=== PATIENT | female | born 1965 | race Caucasian/White ===

== ENCOUNTER 2019-06-15 16:30 | Inpatient (IN) ==
[2019-06-15] MEDS ORDERED: IOPAMIDOL 100 ML BOTTLE IV ONE (16:31)
[2019-06-15 17:44] LABS: Basophils # (Auto) 0.08 K/mcL (0.00-0.30); Basophils % (Auto) 0.8 % (0.0-2.0); Eosinophils # (Auto) 0.43 K/mcL (0.00-0.70); Eosinophils % (Auto) 4.2 % (0.0-7.0); Granulocytes % (Auto) 55.7 % (38.0-78.0); Hematocrit 42.9 % (34.1-44.9); Hemoglobin 13.2 g/dL (11.2-15.7); Lymphocytes # (Auto) 3.13 K/mcL (1.50-4.80); Lymphocytes % (Auto) 30.4 % (15.5-49.0); Mean Cell Volume 89.9 fL (80.0-100.0); Mean Corpuscular HGB Conc 30.8 g/dL (31.0-36.0); Monocytes # (Auto) 0.92 K/mcL (0.10-0.90); Monocytes % (Auto) 8.9 % (1.0-12.0); Platelet Count 309 K/mcL (140-440); RBC 4.77 M/mcL (3.59-5.38); Red Cell Distribution Width 16.6 % (11.5-14.5); WBC 10.3 K/mcL (4.50-11.00)
[2019-06-15 17:57] LABS: Prothrombin Time 13.9 sec (11.9-14.5)
[2019-06-15 18:04] LABS: proBNP 125.9 pg/ml (0-125)
[2019-06-15 18:05] LABS: ALT/SGPT 44 U/l (0-40); AST/SGOT 58 U/l (0-37); Albumin 3.8 gm/dL (3.2-5.2); Albumin/Globulin Ratio 1.2 (1.0-2.3); Alkaline Phosphatase 182 U/L (39-117); Bilirubin,Total 0.3 mg/dL (0.0-1.0); Blood Urea Nitrogen 26 mg/dl (6-20); Calcium 8.6 mg/dl (8.6-10.4); Carbon Dioxide 29 mmol/L (22-30); Chloride 95 mmol/L (96-108); Globulin 3.2 gm/dL (2.2-3.7); Glomerular Filtration Rate 72; Glucose 95 mg/dL (70-105)
[2019-06-15] MEDS ORDERED: HYDROcodone/APAP (PP) 5/325MG TABLET (#4) PO ONE (18:14)
[2019-06-15] MEDS ORDERED: HYDROcodone/APAP 5/325MG TABLET PO ONE ×2 (18:27→22:29)
--- NOTE | 2019-06-15 20:08 | Emergency Department Note ---
General Adult HPI - General Chief complaint: Shortness of Breath/Dyspnea Stated complaint: shortness of breath Time Seen by Provider: 06/15/19 16:52 Source: patient Mode of arrival: ambulatory Limitations: no limitations - History of Present Illness HPI Narrative: 53-year old patient presenting with chief complaint of dyspnea. Patient's dyspnea arose over the course of weeks. Patient with associated symptoms of cough, gradual progression, orthopnea. She has had recent echocardiogram. Past medical history is significant for asthma/cardiovascular disease/CHF/obesity, deconditioning. This patient's dyspnea was exacerbated by exertion within 50-100 feet of walking or several minutes of exercise. Also was associated with a nocturnal component. Symptoms are intermittent. Additional associated symptoms such as cough, sputum production, nasal congestion, chest pain, peripheral edema, joint swelling, muscle weakness were also inquired and were negative. Patient primarily with dyspnea sensation of sensation of suffocation. - Related Data Previous Rx's Medication Instructions Recorded fluticasone propionate 50 2 spray INTRANASAL QDAY #15.8 ml 02/05/19 mcg/actuation nasal spray,suspension citalopram 20 mg tablet 20 mg PO QDAY #90 tab 02/11/19 zolpidem 10 mg tablet 10 mg PO HS PRN #30 tab 04/08/19 clonazepam 1 mg tablet See Rx Instructions PO BID PRN #30 05/29/19 tab hydrocodone 7.5 mg-acetaminophen 1 tab PO Q4H PRN #90 tab 05/29/19 325 mg tablet amlodipine 10 mg tablet 10 mg PO QDAY #90 tab 06/07/19 albuterol sulfate 90 mcg/actuation 2 puff INHALATION Q6H PRN #8.5 g 06/11/19 aerosol inhaler furosemide 20 mg tablet 20 mg PO QAM #30 tab 06/11/19 potassium chloride 10 mEq 10 meq PO QDAY #30 tab 06/11/19 tablet,extended release Levofloxacin [Levaquin] 750 mg PO DAILY #7 tab 06/15/19 Allergies Allergy/AdvReac Type Severity Reaction Status Date / Time Varenicline [From Chantix] Allergy Unknown Unknown Verified 06/15/19 16:38 Review of Systems All systems ED: reviewed and negative except as stated. Past Medical History - Past Medical History PMFSH Narrative: All Active Problems (Last Reviewed 04/02/19 @ 13:46 by Woody Fierro PA-C) Community acquired pneumonia (Acute) Maxillary sinusitis (Acute) Upper respiratory infection (Acute) Macromastia (Chronic) Degeneration of intervertebral disc of lumbar region (Chronic) Diverticulosis of colon (Chronic) Osteoarthritis (Chronic) Insomnia (Chronic) - Social History smoking status: Current every day smoker Physical Exam Vital signs and evaluated for evidence of hypoxia or hemodynamic compromise specifically tachycardia/hypotension General: Alert, interactive, appropriate Head: Atraumatic, normocephalic Eyes: Extraocular movements intact, sclera anicteric, no conjunctival injection Ears: Pinnae normal, no discharge Mouth: Oral mucosa moist, no acute swelling or evidence of infection Nares: No nasal discharge, patent bilaterally Neck: Trachea midline, full range of motion Chest: Symmetrical chest wall rise, breathing normally; nonlabored respirations Cardiovascular: Patient with excellent perfusion to the extremities; without tachycardia Extremities: Full range of motion joints, no obvious deformities Neuro: Alert, oriented x3, cranial nerves II through XII grossly intact, patient without lateralizing findings such as weakness, or abnormal reflexes Psychiatric: Normal affect, normal mood Limitations: no limitations Course Vital Signs Temperature 98 F 06/15/19 16:30 Pulse Rate 87 06/15/19 16:30 Respiratory Rate 20 06/15/19 16:30 Blood Pressure 139/80 06/15/19 16:30 Pulse Oximetry (%) 66 L 06/15/19 16:30 Temperature 98 F 06/15/19 16:30 Pulse Rate 66 06/15/19 19:31 Respiratory Rate 12 06/15/19 19:31 Blood Pressure 133/75 06/15/19 19:31 Pulse Oximetry (%) 95 06/15/19 19:31 Medical Decision Making - [facility] Narrative Medical decision making narrative: Acute dyspnea differential diagnosis considered in this case included MT, heart failure, cardiac tamponade, bronchospasm, pulmonary embolism, pneumothorax, pneumonia or infection, and upper airway obstruction. After review of chart and patient history/physical exam/labs as well as imaging the differential diagnosis addressed was acute hypoxic respiratory failure, COPD exacerbation, pneumonia, sepsis, pulmonary edema, pneumothorax, metabolic acidosis, acute respiratory distress syndrome, panic attack, airflow obstruction, restrictive lung disease, aspiration, congestive heart failure, hypercapnia, influenza, bronchitis, upper respiratory infection, pulmonary embolism, cardiac tamponade, valvular obstruction, MT/ACS, and arrhythmia in my medical opinion this patient has dyspnea that reasonably does not require admission to the hospital. D-dimer was positive and CT pulmonary angiogram demonstrated there was some interstitial infiltrates. Patient also does have dilatation of the left ventricle however noting that BN P is 125.9 and high normal for us is 125 I doubt she has acute congestive heart failure. She does not have pulmonary embolism. In my medical opinion at this time patient has pneumonia and is not hypoxic tachycardic hypotensive or other findings to suggest she needs to be admitted for this and we will treat her as an outpatient pneumonia. - Lab Data Result diagrams: 06/15/19 17:05 06/15/19 17:05 Lab Results 06/15/19 06/15/19 06/15/19 Range/Units 17: 17:05 17:05 WBC (4.50-11.00) K/mcL RBC (3.59-5.38) M/mcL Hgb (11.2-15.7) g/dL Hct (34.1-44.9) % MCV (80.0-100.0) fL MCH (26.0-34.0) pg MCHC (31.0-36.0) g/dL RDW (11.5-14.5) % Plt Count (140-440) K/mcL MPV (7.4-10.4) fL Gran % (38.0-78.0) % Lymph % (Auto) (15.5-49.0) % Patrick % (Auto) (1.0-12.0) % Eos % (Auto) (0.0-7.0) % Baso % (Auto) (0.0-2.0) % Gran # (1.80-8.00) K/mcL Lymph # (Auto) (1.50-4.80) K/mcL Patrick # (Auto) (0.10-0.90) K/mcL Eos # (Auto) (0.00-0.70) K/mcL Baso # (Auto) (0.00-0.30) K/mcL PT 13.9 (11.9-14.5) sec INR 1.0 (0.9-1.1) D-Dimer 2.07 H (0.00-0.40) ug/ml Sodium 137 (133-145) mmol/L Potassium 4.3 (3.3-5.1) mmol/L Chloride 95 L (96-108) mmol/L Carbon Dioxide 29 (22-30) mmol/L Anion Gap 13.0 (8-16) BUN 26 H (6-20) mg/dl Creatinine 0.9 (0.6-1.1) mg/dl GFR Calculation 72 Glucose 95 (70-105) mg/dL Calcium 8.6 (8.6-10.4) mg/dl Total Bilirubin 0.3 (0.0-1.0) mg/dL AST 58 H (0-37) U/l ALT 44 H (0-40) U/l Alkaline Phosphatase 182 H (39-117) U/L Troponin T < 0.01 (0-0.03) ng/ml NT-Pro-B Natriuret Pep 125.9 H (0-125) pg/ml Total Protein 7.0 (5.9-8.4) gm/dL Albumin 3.8 (3.2-5.2) gm/dL Globulin 3.2 (2.2-3.7) gm/dL Albumin/Globulin Ratio 1.2 (1.0-2.3) 06/15/19 Range/Units 17:05 WBC 10.3 (4.50-11.00) K/mcL RBC 4.77 (3.59-5.38) M/mcL Hgb 13.2 (11.2-15.7) g/dL Hct 42.9 (34.1-44.9) % MCV 89.9 (80.0-100.0) fL MCH 27.7 (26.0-34.0) pg MCHC 30.8 L (31.0-36.0) g/dL RDW 16.6 H (11.5-14.5) % Plt Count 309 (140-440) K/mcL MPV 9.0 (7.4-10.4) fL Gran % 55.7 (38.0-78.0) % Lymph % (Auto) 30.4 (15.5-49.0) % Patrick % (Auto) 8.9 (1.0-12.0) % Eos % (Auto) 4.2 (0.0-7.0) % Baso % (Auto) 0.8 (0.0-2.0) % Gran # 5.74 (1.80-8.00) K/mcL Lymph # (Auto) 3.13 (1.50-4.80) K/mcL Patrick # (Auto) 0.92 H (0.10-0.90) K/mcL Eos # (Auto) 0.43 (0.00-0.70) K/mcL Baso # (Auto) 0.08 (0.00-0.30) K/mcL PT (11.9-14.5) sec INR (0.9-1.1) D-Dimer (0.00-0.40) ug/ml Sodium (133-145) mmol/L Potassium (3.3-5.1) mmol/L Chloride (96-108) mmol/L Carbon Dioxide (22-30) mmol/L Anion Gap (8-16) BUN (6-20) mg/dl Creatinine (0.6-1.1) mg/dl GFR Calculation Glucose (70-105) mg/dL Calcium (8.6-10.4) mg/dl Total Bilirubin (0.0-1.0) mg/dL AST (0-37) U/l ALT (0-40) U/l Alkaline Phosphatase (39-117) U/L Troponin T (0-0.03) ng/ml NT-Pro-B Natriuret Pep (0-125) pg/ml Total Protein (5.9-8.4) gm/dL Albumin (3.2-5.2) gm/dL Globulin (2.2-3.7) gm/dL Albumin/Globulin Ratio (1.0-2.3) Disposition Pt seen by VEHIC[employer] MANAGER/PA only: No Clinical Impression: Community acquired pneumonia Qualifiers: Laterality: unspecified laterality Qualified Code(s): J18.9 - Pneumonia, unspecified organism Disposition: Home, Self-Care Condition: Fair Instructions: Pneumonia (ED) Additional Instructions: Thank you, Mel Dangelo , for coming to [facility] for your emergency medicine needs today. As your doctor today, Dr. Faria it is my greatest wish that we did address your concerns to the best of our ability in the emergency department. Shortness of breath is very concerning symptom. It is not infrequent that we are unable to arrive to a specific diagnostic conclusion in every case of shortness of breath. However, we are able to evaluate you for the most dangerous and emergent causes for your symptoms. Things we checked for and you do not have include a heart attack, collapsed lung, pneumonia, blood clots in your lungs or a direct blockage of your airway. Oftentimes patients must return to the emergency department for further evaluations if there are symptom changes/persistence, sometimes things do not show up in initial labs/x rays and then later do show up. Simply put, if you are worried I am worried. You must follow-up with your primary care physician within 1 week of this emergency room visit. Prescriptions: Levofloxacin [Levaquin] 750 mg PO DAILY #7 tab Transmission Status: Pending to [facility] Referrals: Woody Fierro PA-C [Primary Care Provider] -
[2019-06-15] MEDS ORDERED: LEVOFLOXACIN 750 MG TABLET PO ONE (20:22)
[2019-06-15] MEDS ORDERED: LEVOFLOXACIN 750 MG/150 ML BAG IV ONE (20:30)
[2019-06-15] MEDS ORDERED: PROCHLORPERAZINE 10 MG/2 ML VIAL IV PRN (22:59)
[2019-06-15] MEDS ORDERED: ALBUTEROL SULFATE 2.5 MG/3 ML NEBULIZER NEB PRN (22:59)
[2019-06-15] MEDS ORDERED: DEXTROSE 31 GM ORAL.SUSP PO PRN (22:59)
[2019-06-15] MEDS ORDERED: DEXTROSE 50% 50 ML VIAL IV PRN (22:59)
[2019-06-15] MEDS ORDERED: LEVOFLOXACIN 750 MG/150 ML BAG IV SCH (23:00)
[2019-06-15] MEDS ORDERED: ALBUTEROL SULFATE 200 PUFF INHALER INH PRN (23:10)
[2019-06-15] MEDS ORDERED: ZOLPIDEM TARTRATE 10 MG PO PRN (23:15)
[2019-06-15] MEDS ORDERED: clonazePAM 1 MG TABLET PO PRN (23:15)
[2019-06-15] MEDS ORDERED: HYDROCODONE/APAP 7.5/325MG TABLET PO PRN (23:15)
--- NOTE | 2019-06-16 00:15 | Internal Med History&Physical ---
Medical - H&P: [facility] Patient information: Note initiated : 06/16/19 at 12:04 am Service Date, if different from initiated Date: [] Patient: Mel Dangelo 53 y/o F admitted on for shortness of breath. Chief Complaint: [SOB x 1 month] History of present illness: Patient is a 52-year-old female with a history of diabetes type 2 and current smoker who presented to the ER due to shortness of breath for about a month. As per patient, she has been having shortness breath for about a month associated with mild cough with a small amount of sputum, mild headache and nasal congestion. She started to notice some swelling of both legs 2 weeks ago. She also reports that yesterday she had one episode of right-sided chest pain which lasted for a short time. Otherwise she is fine. Denies dizziness, confusion, diaphoresis, fever, chills, abdominal pain, nausea, vomiting, diarrhea, sore throat, dysuria. In the ER, d-dimer was elevated. CT angio chest - negative for PE but possible pnuemonia. She also had 1 episode of desaturation, 78%. 1 dose of Levaquin was given. When I saw this patient, other than symptoms mentioned above, she was fine. Denied recent travel or sick contact. Review of systems: Positive for these symptoms mentioned in HPI. All other systems were reviewed and are negative. Medical - H&P: PMH Family history: reviewed and not pertinent Smoking status: Current every day smoker Drug use: none Alcohol use: none Medical - H&P: Meds Home Medications Medication Instructions Recorded Confirmed Type fluticasone propionate 50 2 spray INTRANASAL QDAY #15.8 ml 02/05/19 06/15/19 Rx mcg/actuation nasal spray,suspension zolpidem 10 mg tablet 10 mg PO HS PRN #30 tab 04/08/19 06/15/19 Rx hydrocodone 7.5 mg-acetaminophen 1 tab PO Q4H PRN #90 tab 05/29/19 06/15/19 Rx 325 mg tablet amlodipine 10 mg tablet 10 mg PO QDAY #90 tab 06/07/19 06/15/19 Rx albuterol sulfate 90 mcg/actuation 2 puff INHALATION Q6H PRN #8.5 g 06/11/19 06/15/19 Rx aerosol inhaler furosemide 20 mg tablet 20 mg PO QAM #30 tab 06/11/19 06/15/19 Rx potassium chloride 10 mEq 10 meq PO QDAY #30 tab 06/11/19 06/15/19 Rx tablet,extended release Levofloxacin [Levaquin] 750 mg PO DAILY #7 tab 06/15/19 Rx Vitamin C 1,000 mg DAILY 06/15/19 06/15/19 History Vitamin D3 1 tab PO DAILY 06/15/19 06/15/19 History clonazePAM [KlonoPIN] 1 mg PO BID PRN 06/15/19 06/15/19 History Allergies Allergy/AdvReac Type Severity Reaction Status Date / Time Varenicline [From Chantix] Allergy Unknown Unknown Verified 06/15/19 16:38 Medical - H&P: Exam - Constitutional Vitals: Temp Pulse Resp BP Pulse Ox 98 F 84 17 140/83 92 06/15/19 16:30 06/15/19 23:46 06/15/19 23:46 06/15/19 23:46 06/15/19 23:46 - Other Additional findings: General - No acute distress Eyes - PERRLA, EOM intact ENT no rhinorrhea, no noticeable or palpable swelling, no redness or rash around throat or on face Neck supple, no JVD, no thyromegaly Respiratory: occasional rhonchi, no use of accessary muscles. Cardiovascular - RRR no m/r/g, GI - Normal bowel sounds, no distended, soft. Extremeties - Pitting edema+ - ++, no cyanosis or clubbing Hemo/lymphatic/immune no lymphadenopathy Neurological Alert and oriented x 3, no focal neurological deficits. Psychiatry flat affect Medical - H&P: Reslt - Labs CBC & Chem 7: 06/15/19 17:05 06/15/19 17:05 Labs: Short CBC 06/15/19 Range/Units 17:05 WBC 10.3 (4.50-11.00) K/mcL Hgb 13.2 (11.2-15.7) g/dL Hct 42.9 (34.1-44.9) % Plt Count 309 (140-440) K/mcL BMP 06/15/19 17:05 Sodium 137 Potassium 4.3 Chloride 95 L Carbon Dioxide 29 BUN 26 H Creatinine 0.9 Glucose 95 Calcium 8.6 Cardiac Enzymes 06/15/19 Range/Units 17:05 Troponin T < 0.01 (0-0.03) ng/ml Liver Function 06/15/19 Range/Units 17:05 Total Bilirubin 0.3 (0.0-1.0) mg/dL AST 58 H (0-37) U/l ALT 44 H (0-40) U/l Alkaline Phosphatase 182 H (39-117) U/L Albumin 3.8 (3.2-5.2) gm/dL Medical - H&P: A/P - Narrative A/P Narrative: Assessment: 1. Acute hypoxic respiratory failure 2. Possible pneumonia J18.9 3. Abnormal liver enzymes 4. Elevation of D-dimer 5. DM type 2 6. Current smoker 7. SOB, covid 19 infection? 8. HTN 9. Chest pain Plan: 1. One episode of desaturation, 78% in the ER. Pulse ox. oxygen. Home meds including several narcotics and BZ, which should be decreased to eventually discontinue 2. CTA chest result pending. But ER Dr. Faria verbally reported possible pneumonia Blood and sputum culture. One dose Levaquin was started in the ER. Continue Levaquin 3. Denies regular use of alcohol. Repeat liver enzymes in morning. 4. CTA chest negative for PE. US Doppler LEs to r/o DVT was ordered 5. Pt denies having DM. Hba1c ordered. Diabetic diet. Insulin ss. 6. Smoking cessation counseled. Nicotine patch. 7. Special droplet and contact precaution for covid 19 8. Continue home amlodipine 10mg daily. 9. EKG no ST elevation, but may show Q waves and intraventricular conduction delay. EKG on 03/2019 showed incomplete LBBB. Troponin negative in the ER. Repeat trop Q6hrs. Continue aspirin and added Lipitor. 10. DVT prophylaxis: Lovenox 11. Code status: full
[2019-06-16] MEDS ORDERED: ZOLPIDEM 5 MG TABLET PO PRN (00:54)
[2019-06-16] MEDS ORDERED: PROCHLORPERAZINE 10 MG/2 ML VIAL IV PRN (00:54)
[2019-06-16] MEDS ORDERED: DEXTROSE 31 GM ORAL.SUSP PO PRN (00:54)
[2019-06-16] MEDS ORDERED: ALBUTEROL SULFATE 200 PUFF INHALER INH PRN (00:54)
[2019-06-16] MEDS ORDERED: DEXTROSE 50% 50 ML VIAL IV PRN (00:54)
[2019-06-16] MEDS ORDERED: clonazePAM 1 MG TABLET ONE (01:03)
[2019-06-16] MEDS ORDERED: ZOLPIDEM 5 MG TABLET ONE (01:04)
[2019-06-16] MEDS: 0.9 % SODIUM CHLORIDE 10 ML SYRINGE IV SCH ×3 (05:24→20:40)
[2019-06-16] MEDS ORDERED: 0.9 % SODIUM CHLORIDE 10 ML SYRINGE IV SCH (06:00)
[2019-06-16 06:18] LABS: Basophils # (Auto) 0.05 K/mcL (0.00-0.30); Basophils % (Auto) 0.8 % (0.0-2.0); Eosinophils # (Auto) 0.25 K/mcL (0.00-0.70); Granulocytes % (Auto) 56.1 % (38.0-78.0); Hematocrit 38.9 % (34.1-44.9); Hemoglobin 11.6 g/dL (11.2-15.7); Lymphocytes # (Auto) 1.87 K/mcL (1.50-4.80); Lymphocytes % (Auto) 29.7 % (15.5-49.0); Mean Cell Volume 90.7 fL (80.0-100.0); Mean Corpuscular HGB Conc 29.8 g/dL (31.0-36.0); Mean Platelet Volume 9.4 fL (7.4-10.4); Monocytes # (Auto) 0.59 K/mcL (0.10-0.90); Monocytes % (Auto) 9.4 % (1.0-12.0); Platelet Count 261 K/mcL (140-440); RBC 4.29 M/mcL (3.59-5.38); Red Cell Distribution Width 16.9 % (11.5-14.5); WBC 6.3 K/mcL (4.50-11.00)
[2019-06-16 06:36] LABS: ALT/SGPT 134 U/l (0-40); AST/SGOT 184 U/l (0-37); Albumin 3.3 gm/dL (3.2-5.2); Albumin/Globulin Ratio 1.2 (1.0-2.3); Alkaline Phosphatase 153 U/L (39-117); Bilirubin,Total 0.3 mg/dL (0.0-1.0); Blood Urea Nitrogen 22 mg/dl (6-20); C-Reactive Protein 1.1 mg/dl (0.0-0.8); Calcium 8.7 mg/dl (8.6-10.4); Carbon Dioxide 33 mmol/L (22-30); Globulin 2.7 gm/dL (2.2-3.7); Glomerular Filtration Rate 72; Glucose 94 mg/dL (70-105); Thyroid Stimulating Hormone 1.28 uIU/ml (0.27-5.01)
[2019-06-16 06:47] LABS: Chloride 99 mmol/L (96-108)
[2019-06-16 06:57] LABS: Estimated Average Glucose(eAG) 103 mg/dL; Hemoglobin A1C 5.2 % HGB (4.0-6.0)
[2019-06-16] MEDS: INSULIN LISPRO 1 UNIT/0.01 ML UNIT SQ SCH ×4 (07:17→20:39)
[2019-06-16] MEDS ORDERED: INSULIN LISPRO 1 UNIT/0.01 ML UNIT SQ SCH (07:30)
[2019-06-16] MEDS: HYDROCODONE/APAP 7.5/325MG TABLET PO PRN ×3 (08:06→16:32)
[2019-06-16] MEDS ORDERED: HYDROCODONE/APAP 7.5/325MG TABLET PO ONE (08:09)
--- NOTE | 2019-06-16 08:41 | XRay Report ---
HISTORY: Chest pain and dyspnea FINDINGS: Heart is mildly enlarged and has increased in size since 03/25/19. A vessels are mildly engorged. There is an opacification at the right lung base which may be a combination of pleural fluid and consolidated lung parenchyma. There is no infiltrate in the left side. IMPRESSION: Cardiomegaly and borderline pulmonary vascular congestion Atelectasis or pneumonia in the right lower lobe Interpreted and Authenticated by: Augustin Lou 06/16/19
--- NOTE | 2019-06-16 08:48 | Cat Scan Report ---
History: Short of breath, elevated d-dimer level TECHNIQUE: Following injection of intravenous nonionic contrast, pulmonary arterial phase images were acquired from the thoracic inlet to the adrenals. Sagittal, coronal and axial MIPS images were created. The radiation exposure was limited using dose reduction technology. FINDINGS: The pulmonary arteries are normal with no intraluminal filling defects. The aorta is normal in caliber and there is no plaque formation. The heart is borderline enlarged and there is a very small pericardial effusion. Patient is a small layering right-sided pleural effusion. Associated with this is atelectasis of the posterior lateral basal segments of the right lower lobe. There is a patchy distribution of small areas of consolidated lung parenchyma in the right upper lobe and small zones of groundglass opacity in the right middle and right lower lobe. Bands of discoid atelectasis are present in the right middle lobe, right lower lobe and inferior segment lingula and lateral basal segment left lower lobe. Bronchial wall thickening is present in both lower lobes involving the distal third order bronchi. This is causing significant narrowing of the lumen of some of the small peripheral airways in the posterior basal segments. There are indeterminate size lymph nodes in the mediastinum and right hilum. Largest lymph node is in the pretracheal retrocaval space and measures 1.3 cm. IMPRESSION: No evidence of pulmonary emboli Patchy small infiltrates in the right lung could be due to an infectious or noninfectious inflammatory process Bronchitis with peripheral atelectasis in the right lower lobe Small pericardial and small right-sided pleural effusion Interpreted and Authenticated by: Augustin Lou 06/16/19
--- NOTE | 2019-06-16 08:55 | Ultrasound Report ---
History: Shortness of breath FINDINGS: There is normal augmentation and compressibility of the deep veins and saphenous vein in both legs from the groin through the calf. Doppler shows normal waveform patterns. IMPRESSION: Normal exam, without evidence of deep venous thrombosis in either leg Interpreted and Authenticated by: Augustin Lou 06/16/19
[2019-06-16] MEDS ORDERED: ASPIRIN 81 MG TAB.CHEW CHEWED SCH (09:00)
[2019-06-16] MEDS ORDERED: [UNRECOGNIZED DRUG - REMARK] INTRANASAL SCH (09:00)
[2019-06-16] MEDS ORDERED: ATORVASTATIN 40 MG TABLET PO SCH (09:00)
[2019-06-16] MEDS ORDERED: DOCUSATE SODIUM 100 MG CAPSULE PO SCH (09:00)
[2019-06-16] MEDS ORDERED: ENOXAPARIN 40 MG/0.4 ML SYRINGE SQ SCH (09:00)
[2019-06-16] MEDS ORDERED: FUROSEMIDE 20 MG TABLET PO SCH (09:00)
[2019-06-16] MEDS ORDERED: amLODIPine 10 MG TABLET PO SCH (09:00)
[2019-06-16] MEDS: FLUTICASONE PROPIONATE SPRAY.NAS NS SCH (09:09)
[2019-06-16] MEDS: MUPIROCIN OINT 2% 22GM NARES SCH ×2 (09:33→20:39)
[2019-06-16] MEDS: NICOTINE 14 MG PATCH TOPICAL SCH (09:33)
[2019-06-16] MEDS: LEVOFLOXACIN 750 MG/150 ML BAG IV SCH (09:34)
[2019-06-16] MEDS: ENOXAPARIN 40 MG/0.4 ML SYRINGE SQ SCH (09:34)
[2019-06-16] MEDS: DOCUSATE SODIUM 100 MG CAPSULE PO SCH ×3 (09:35→20:39)
[2019-06-16] MEDS: ATORVASTATIN 40 MG TABLET PO SCH (09:35)
[2019-06-16] MEDS: ASPIRIN 81 MG TAB.CHEW CHEWED SCH (09:35)
[2019-06-16] MEDS: amLODIPine 10 MG TABLET PO SCH (09:35)
[2019-06-16] MEDS: POTASSIUM CHLORIDE 10 MEQ TABLET PO SCH (09:35)
[2019-06-16] MEDS: VITAMIN D3 5,000 UNIT CAPSULE PO SCH (09:35)
[2019-06-16] MEDS ORDERED: NICOTINE 14 MG PATCH TOPICAL SCH (10:00)
[2019-06-16] MEDS: FUROSEMIDE 20 MG/2 ML VIAL IV SCH ×2 (11:33→15:43)
[2019-06-16] MEDS: clonazePAM 1 MG TABLET PO PRN ×2 (11:58→20:40)
[2019-06-17] MEDS: HYDROCODONE/APAP 7.5/325MG TABLET PO PRN ×2 (04:19→09:20)
[2019-06-17] MEDS: 0.9 % SODIUM CHLORIDE 10 ML SYRINGE IV SCH (05:54)
[2019-06-17 06:21] LABS: Basophils # (Auto) 0.05 K/mcL (0.00-0.30); Basophils % (Auto) 0.8 % (0.0-2.0); Eosinophils # (Auto) 0.28 K/mcL (0.00-0.70); Eosinophils % (Auto) 4.2 % (0.0-7.0); Granulocytes % (Auto) 45.6 % (38.0-78.0); Hematocrit 42.2 % (34.1-44.9); Hemoglobin 12.6 g/dL (11.2-15.7); Lymphocytes # (Auto) 2.56 K/mcL (1.50-4.80); Lymphocytes % (Auto) 38.6 % (15.5-49.0); Mean Cell Volume 91.9 fL (80.0-100.0); Mean Corpuscular HGB Conc 29.9 g/dL (31.0-36.0); Mean Platelet Volume 9.3 fL (7.4-10.4); Monocytes # (Auto) 0.72 K/mcL (0.10-0.90); Monocytes % (Auto) 10.8 % (1.0-12.0); Platelet Count 261 K/mcL (140-440); RBC 4.59 M/mcL (3.59-5.38); Red Cell Distribution Width 16.5 % (11.5-14.5); WBC 6.6 K/mcL (4.50-11.00)
[2019-06-17 06:37] LABS: ALT/SGPT 93 U/l (0-40); AST/SGOT 56 U/l (0-37); Albumin 3.4 gm/dL (3.2-5.2); Albumin/Globulin Ratio 1.2 (1.0-2.3); Alkaline Phosphatase 160 U/L (39-117); Bilirubin,Total 0.4 mg/dL (0.0-1.0); Carbon Dioxide 35 mmol/L (22-30); Chloride 97 mmol/L (96-108); Globulin 2.8 gm/dL (2.2-3.7); Glomerular Filtration Rate 98; Glucose 84 mg/dL (70-105)
[2019-06-17 06:38] LABS: Blood Urea Nitrogen 17 mg/dl (6-20)
[2019-06-17] MEDS: FUROSEMIDE 20 MG/2 ML VIAL IV SCH (07:12)
[2019-06-17] MEDS: INSULIN LISPRO 1 UNIT/0.01 ML UNIT SQ SCH (07:13)
[2019-06-17] MEDS: VITAMIN D3 5,000 UNIT CAPSULE PO SCH (07:49)
[2019-06-17] MEDS: LEVOFLOXACIN 750 MG/150 ML BAG IV SCH (07:49)
[2019-06-17] MEDS: ATORVASTATIN 40 MG TABLET PO SCH (07:49)
[2019-06-17] MEDS: POTASSIUM CHLORIDE 10 MEQ TABLET PO SCH (07:49)
[2019-06-17] MEDS: amLODIPine 10 MG TABLET PO SCH (07:49)
[2019-06-17] MEDS: MUPIROCIN OINT 2% 22GM NARES SCH (07:49)
[2019-06-17] MEDS: DOCUSATE SODIUM 100 MG CAPSULE PO SCH (07:50)
[2019-06-17] MEDS: ENOXAPARIN 40 MG/0.4 ML SYRINGE SQ SCH (07:50)
[2019-06-17] MEDS: NICOTINE 14 MG PATCH TOPICAL SCH ×2 (07:50→09:14)
[2019-06-17] MEDS: FLUTICASONE PROPIONATE SPRAY.NAS NS SCH (07:50)
[2019-06-17] MEDS: ASPIRIN 81 MG TAB.CHEW CHEWED SCH (07:50)
--- NOTE | 2019-06-17 09:41 | Discharge Summary ---
Medical - DS: Prov Patient information: Note initiated : 06/17/19 at 9:36 am Service Date, if different from initiated Date: [] Patient: Mel Dangelo 53 y/o F admitted on 06/16/19 for shortness of breath. Chief Complaint: [] Date of admission: 06/16/19 00:37 Discharge date: 06/17/19 Primary care physician: Woody Fierro Consults: 06/15/19 Consult to Physician [CONS] Stat Comment: Consulting Provider: Mame Al Reason For Exam: Physician to Consult Medical - DS: Meds - Discharge Medications Prescriptions: Levofloxacin [Levaquin] 750 mg PO DAILY #7 tab Prescription Printed Active and Home Medications: Home Medications fluticasone propionate 50 mcg/actuation nasal spray,suspension 2 spray INTRANASAL QDAY #15.8 ml 02/05/19 [Rx Confirmed 06/15/19 Last Taken Unknown] zolpidem 10 mg tablet 10 mg PO HS PRN #30 tab 04/08/19 [Rx Confirmed 06/15/19 Last Taken Unknown] hydrocodone 7.5 mg-acetaminophen 325 mg tablet 1 tab PO Q4H PRN #90 tab 05/29/19 [Rx Confirmed 06/15/19 Last Taken Unknown] amlodipine 10 mg tablet 10 mg PO QDAY #90 tab 06/07/19 [Rx Confirmed 06/15/19 Last Taken Unknown] albuterol sulfate 90 mcg/actuation aerosol inhaler 2 puff INHALATION Q6H PRN #8.5 g 06/11/19 [Rx Confirmed 06/15/19 Last Taken Unknown] furosemide 20 mg tablet 20 mg PO QAM #30 tab 06/11/19 [Rx Confirmed 06/15/19 Last Taken Unknown] potassium chloride 10 mEq tablet,extended release 10 meq PO QDAY #30 tab 06/11/19 [Rx Confirmed 06/15/19 Last Taken Unknown] Levofloxacin [Levaquin] 750 mg PO DAILY #7 tab 06/15/19 [Rx Last Taken Unknown] Vitamin C 1,000 mg DAILY 06/15/19 [History Confirmed 06/15/19 Last Taken Unknown] Vitamin D3 1 tab PO DAILY 06/15/19 [History Confirmed 06/15/19 Last Taken Unknown] clonazePAM [KlonoPIN] 1 mg PO BID PRN 06/15/19 [History Confirmed 06/15/19 Last Taken Unknown] Medical - DS: Hosp Hospital Course: Discharge diagnosis 1. Acute hypoxic respiratory failure representation noted now on room air 2. Community-acquired pneumonia J18.9 3. Abnormal liver enzymes representation noted 4. Elevation of D-dimer 5. DM type 2 continue home regimen 6. Current smoker counseled 7. SOB, covid 19 infection-results pending 8. HTN continue home medications 9. Chest pain fully resolved. On aspirin/Lipitor Brief hospital course Patient is a 52-year-old female with a history of diabetes type 2 and current smoker who presented to the ER due to shortness of breath for about a month. As per patient, she has been having shortness breath for about a month associated with mild cough with a small amount of sputum, mild headache and nasal congestion. She started to notice some swelling of both legs 2 weeks ago. She also reports that yesterday she had one episode of right-sided chest pain which lasted for a short time. Otherwise she is fine. Denies dizziness, confusion, diaphoresis, fever, chills, abdominal pain, nausea, vomiting, diarrhea, sore throat, dysuria. In the ER, d-dimer was elevated. CT angio chest - negative for PE but possible pnuemonia. She also had 1 episode of desaturation, 78%. 1 dose of Levaquin was given. When I saw this patient, other than symptoms mentioned above, she was fine. Denied recent travel or sick contact. 06/16-patient demonstrated dramatic improvement over 24 hours. Saturation improved now on room air. Dyspnea resolved. Requesting discharge. COVID test pending. Explained the importance of social distancing and self current timing until COVID test resulted. Patient will continue oral Levaquin for additional 5 days for empiric management of pneumonia. Smoking cessation counseling performed. Discharge diagnosis: . - Time Spent with Patient Total time spent providing and/or coordinating discharge services: Greater than 30 minutes Medical - DS: Exam - Constitutional Vitals: Vital Signs Temp Pulse Pulse Resp BP BP Pulse Ox 06/17/19 07:16 91 06/17/19 07:14 98.0 F 57 L 20 125/90 91 06/17/19 04:25 97.4 F 65 139/71 91 06/17/19 01:06 98.0 F 56 L 144/72 97 06/16/19 20:53 67 94 06/16/19 20:50 98.0 F 74 141/71 93 06/16/19 20:00 94 06/16/19 15:57 81 141/72 91 06/16/19 12:00 98.7 F 62 18 131/72 92 06/16/19 11:28 69 131/72 94 Intake and Output 06/16/19 06/17/19 06/17/19 21:59 05:59 13:59 Intake Total 300 150 Output Total 2150 650 1300 Balance -1850 -650 -1150 Intake: IV 150 Oral 300 Output: Void Amount 2150 650 1300 Other: Meal Dinner Percent of Meal Consumed 100% # Bowel Movements 1 Weight 185 lb Medical - DS: Data Labs on day of discharge: Labs from last 24 hours 06/17/19 06/17/19 05:00 05:00 WBC 6.6 RBC 4.59 Hgb 12.6 Hct 42.2 MCV 91.9 MCH 27.5 MCHC 29.9 L RDW 16.5 H Plt Count 261 MPV 9.3 Gran % 45.6 Lymph % (Auto) 38.6 [place] % (Auto) 10.8 Eos % (Auto) 4.2 Baso % (Auto) 0.8 Gran # 3.03 Lymph # (Auto) 2.56 [place] # (Auto) 0.72 Eos # (Auto) 0.28 Baso # (Auto) 0.05 Sodium 140 Potassium 4.1 Chloride 97 Carbon Dioxide 35 H Anion Gap 8.0 BUN 17 Creatinine 0.7 GFR Calculation 98 Glucose 84 Calcium 9.0 Total Bilirubin 0.4 AST 56 H ALT 93 H Alkaline Phosphatase 160 H Total Protein 6.2 Albumin 3.4 Globulin 2.8 Albumin/Globulin Ratio 1.2 Preliminary micro results at discharge 06/15/19 23:34 Blood Culture - Preliminary Blood 06/15/19 23:40 Blood Culture - Preliminary Blood Medical - DS: A/P - Patient/Caregiver Discharge Instructions Activity: increase activity as tolerated, resume usual activities as tolerated Diet: Regular Diet Additional Instructions: Follow-up PCP in 5 days Continue oral Levaquin for additional 5 Days Continue aspirin and Lipitor Follow-up cardiology in 1 week for evaluation chest pain/Q wave on EKG Return to [facility] for cardiology work-up if worsening chest pain, shortness of breath noted prior to cardiology appointment. Prescriptions: Levofloxacin [Levaquin] 750 mg PO DAILY #7 tab Prescription Printed - Follow up Plan Follow up with: Woody Fierro PA-C [Primary Care Provider] - 06/24/19 9:45 am Disposition: Home, Self-Care Care Plan Goals: This discharge packet is provided to you to help keep you informed about your care. We want to ensure you get everything you need when you go home. You will also be receiving a call from us in a few days to follow up with you and see how you are doing since your discharge. This gives us a chance to listen to any concerns you maybe experiencing since you were discharged or any additional needs you may have, as well as providing us feedback on your care experience. We strive to always provide excellent care and thank you for your feedback and for choosing [facility]. Prognosis: Fair Rehab Potential: Fair I certify that the patient requires SNF services: No Overall status at discharge: patient is progressing back to baseline Medical - DS: Qual - VTE Deep Vein Thrombosis/Pulmonary Embolism Present on Admission: Yes
== END 2019-06-17 11:30 | disposition home or self-care (01) | DRG 189 ==
LOC: ED 16:30 → ICU 06-16 00:37
PROVIDERS: ADMIT Internal Medicine; ATTEND Internal Medicine